=== PATIENT | female | born 1995 | race African-American/Black ===

== ENCOUNTER 2017-03-20 15:54 | Inpatient (IN) | payer OTHER ==
[2017-03-20] MEDS ORDERED: NS 2,000 ML IV ONE (16:06)
[2017-03-20] MEDS ORDERED: ONDANSETRON 4 MG/2 ML VIAL IVP ONE ×2 (16:07→19:00)
--- NOTE | 2017-03-20 16:09 | EDPHY ---
H & P Stated Complaint: lightheaded, n/v for past 3 days. - Personal History LMP (Females 10-55): IUD In Place Current Tetanus/Diphtheria Vaccine: Yes - Medical/Surgical History Hx Asthma: No Hx Chronic Respiratory Disease: No Hx Diabetes: No Hx Cardiac Disease: No Hx Renal Disease: No Hx Cirrhosis: No Hx Alcoholism: No Hx HIV/AIDS: No Hx Splenectomy or Spleen Trauma: No Other PMH: PMH:none. PSH:none - Social History Smoking Status: Never smoked Time Seen by Provider: 03/20/17 16:02 HPI/ROS: CHIEF COMPLAINT: Nausea vomiting diarrhea x3 days HISTORY OF PRESENT ILLNESS: 21-year-old female generally healthy, remote history of appendectomy, complaining of nausea, vomiting, diarrhea for 3 days. No abdominal pain. Feels that she is dehydrated. Decreased urine output. No back or flank pain. No headache. No fever or chills. No flu-like symptoms. No known sick contacts. PRIMARY CARE PROVIDER: [facility] REVIEW OF SYSTEMS: A ten point review of systems was performed and is negative with the exception of the items mentioned in the HPI PAST MEDICAL & SURGICAL HISTORY: Appendectomy. Endometriosis. SOCIAL HISTORY: Student nonsmoker PHYSICAL EXAM (Prior to examination, patient consented to physical exam, hands were washed and my usual and customary physical exam procedures followed) 1) GENERAL: Well-developed, well-nourished, alert and oriented. Appears nontoxic 2) HEAD: Normocephalic, atraumatic 3) HEENT: Pupils equal, round, reactive to light bilaterally. Sclera anicteric. [Nasopharynx, oropharynx, clear, no lesions. Dry mucous membranes 4) NECK: Full range of motion, no meningeal signs. 5) LUNGS: Clear auscultation bilaterally, no wheezes, no rhonchi, no retractions. 6) HEART: Regular rate and rhythm, no murmur, no heave, no gallop. 7) ABDOMEN: No guarding, no rebound, no focal tenderness, negative McBurney's, negative Rueda's, negative Rovsing's, negative peritoneal sign, I am unable to elicit any abdominal pain on exam 8) MUSCULOSKELETAL: Moving all extremities, no focal areas of tenderness, no obvious trauma. No peripheral edema or discoloration. 9) BACK: No CVA tenderness, no midline vertebral tenderness, no fluctuance, no step-off, no obvious trauma, no visual or palpable abnormality. 10) SKIN: No rash, no petechiae. 11) Psychiatric: Patient is oriented X 3, there is no agitation. DIFFERENTIAL DIAGNOSIS: My differential diagnosis includes, but is not limited to, acute appendicitis, acute cholecystitis, bowel obstruction, acute pancreatitis, ovarian torsion, ectopic , gastritis and urinary tract infection. The patient understands that this diagnosis is provisional and can never be 100% accurate. This is a partial list of diagnoses considered. These considerations are based on history, physical exam, past history and reassessment. (Mariah Rose) Constitutional: Initial Vital Signs Temperature (C) 36.4 C 03/20/17 16:03 Heart Rate 105 H 03/20/17 16:03 Respiratory Rate 18 03/20/17 16:03 Blood Pressure 138/80 H 03/20/17 16:03 O2 Sat (%) 96 03/20/17 16:03 O2 Delivery Mode Room Air Allergies/Adverse Reactions: No Known Allergies Allergy (Unverified 06/23/14 11:44) Home Medications: Medication Instructions Recorded Adderall 10 MG (*) 03/20/17 Claritin 03/20/17 Ondansetron Odt [Zofran Odt] 4 mg PO Q4PRN PRN #10 tab 03/20/17 Medical Decision Making Procedures: Patient is given Imodium 4 mg p.o. Stool is sent for stool studies (Frederick Thomas) ED Course/Re-evaluation: 4:08 p.m.: Will obtain diagnostic studies, administer IV hydration and IV antiemetic and re-evaluate 5:00 p.m.: Care turned over to Dr. Frederick Thomas who also evaluated and examined patient. (Mariah Rose) I also saw the patient in the emergency department at 4:10 p.m.. I obtained a history of history of sensitive stomach and appendectomy. 2 days of vomiting and diarrhea. Occasional crampy abdominal pain but no localizing abdominal pain. Can't keep fluids down. No recent travel or known bad food exposure. Abdominal exam shows no focal areas of tenderness. Mucous membranes are dry. Plan IV fluids until urination. Zofran for nausea 8:10 p.m.. Patient has had 3 L of saline. She has had 4 episodes of diarrhea. She still has no urge to urinate. Her abdomen is reexamined and shows no focal areas of tenderness. I consulted and discussed case with Dr. Barton, hospitalist who agrees to the admission (Frederick Thomas) Differential Diagnosis: I suspect that this is noro virus. This could be bacterial gastroenteritis. Patient is clinically dehydrated and not improving. Minimal urination. No evidence for acute abdomen. I have also considered electrolyte abnormalities ( Frederick Thomas) - Data Points Laboratory Results: Laboratory Results 03/20/17 16:12 03/20/17 16:12 03/20/17 03/20/17 03/20/17 17:38 16:12 16:12 WBC RBC Hgb Hct MCV MCH MCHC RDW Plt Count MPV Neut % (Auto) Lymph % (Auto) [place] % (Auto) Eos % (Auto) Baso % (Auto) Nucleat RBC Rel Count Absolute Neuts (auto) Absolute Lymphs (auto) Absolute Monos (auto) Absolute Eos (auto) Absolute Basos (auto) Absolute Nucleated RBC Immature Gran % Immature Gran # Sodium 143 mEq/L mEq/L (135-145) Potassium 4.1 mEq/L mEq/L (3.5-5.2) Chloride 107 mEq/L mEq/L (97-110) Carbon Dioxide 15 mEq/l L mEq/l (22-31) Anion Gap 21 mEq/L H mEq/L (8-16) BUN 13 mg/dL mg/dL (7-23) Creatinine 1.0 mg/dL mg/dL (0.6-1.0) Estimated GFR > 60 Glucose 95 mg/dL mg/dL (70-100) Calcium 10.1 mg/dL mg/dL (8.5-10.4) Total Bilirubin 0.7 mg/dL mg/dL (0.1-1.4) Conjugated Bilirubin 0.5 mg/dL mg/dL (0.0-0.5) Unconjugated Bilirubin 0.2 mg/dL mg/dL (0.0-1.1) AST 35 IU/L IU/L (14-46) ALT 32 IU/L IU/L (9-52) Alkaline Phosphatase 77 IU/L IU/L (38-126) Total Protein 8.5 g/dL H g/dL (6.3-8.2) Albumin 4.9 g/dL g/dL (3.5-5.0) Lipase 106 IU/L IU/L (23-300) Beta HCG, Qual NEGATIVE Urine Color LT. YELLOW Urine Appearance CLEAR Urine pH 6.0 (5.0-7.5) Ur Specific [place] > 1.030 H (1.002-1.030) Urine Protein 1+ H (NEGATIVE) Urine Ketones 1+ H (NEGATIVE) Urine Blood 1+ H (NEGATIVE) Urine Nitrate NEGATIVE (NEGATIVE) Urine Bilirubin NEGATIVE (NEGATIVE) Urine Urobilinogen 0.2 EU EU (0.2-1.0) Ur Leukocyte Esterase NEGATIVE (NEGATIVE) Urine RBC 3-5 /hpf H /hpf (0-3) Urine WBC NONE SEEN /hpf /hpf (0-3) Ur Epithelial Cells 2+ /lpf H /lpf (NONE-1+) Urine Bacteria 1+ /hpf H /hpf (NONE SEEN) Urine Mucus 1+ /lpf /lpf (NONE-1+) Urine Glucose NEGATIVE (NEGATIVE) 03/20/17 16:12 WBC 8.36 10^3/uL 10^3/uL (3.80-9.50) RBC 5.70 10^6/uL H 10^6/uL (4.18-5.33) Hgb 15.6 g/dL g/dL (12.6-16.3) Hct 47.3 % H % (38.0-47.0) MCV 83.0 fL fL (81.5-99.8) MCH 27.4 pg L pg (27.9-34.1) MCHC 33.0 g/dL g/dL (32.4-36.7) RDW 13.3 % % (11.5-15.2) Plt Count 243 10^3/uL 10^3/uL (150-400) MPV 10.0 fL fL (8.7-11.7) Neut % (Auto) 63.2 % % (39.3-74.2) Lymph % (Auto) 23.8 % % (15.0-45.0) [place] % (Auto) 11.8 % % (4.5-13.0) Eos % (Auto) 0.6 % % (0.6-7.6) Baso % (Auto) 0.1 % L % (0.3-1.7) Nucleat RBC Rel Count 0.0 % % (0.0-0.2) Absolute Neuts (auto) 5.28 10^3/uL 10^3/uL (1.70-6.50) Absolute Lymphs (auto) 1.99 10^3/uL 10^3/uL (1.00-3.00) Absolute Monos (auto) 0.99 10^3/uL H 10^3/uL (0.30-0.80) Absolute Eos (auto) 0.05 10^3/uL 10^3/uL (0.03-0.40) Absolute Basos (auto) 0.01 10^3/uL L 10^3/uL (0.02-0.10) Absolute Nucleated RBC 0.00 10^3/uL 10^3/uL (0-0.01) Immature Gran % 0.5 % % (0.0-1.1) Immature Gran # 0.04 10^3/uL 10^3/uL (0.00-0.10) Sodium Potassium Chloride Carbon Dioxide Anion Gap BUN Creatinine Estimated GFR Glucose Calcium Total Bilirubin Conjugated Bilirubin Unconjugated Bilirubin AST ALT Alkaline Phosphatase Total Protein Albumin Lipase Beta HCG, Qual Urine Color Urine Appearance Urine pH Ur Specific [place] Urine Protein Urine Ketones Urine Blood Urine Nitrate Urine Bilirubin Urine Urobilinogen Ur Leukocyte Esterase Urine RBC Urine WBC Ur Epithelial Cells Urine Bacteria Urine Mucus Urine Glucose Medications Given: Discontinued Medications Sodium Chloride (Ns) 2,000 mls @ 0 mls/hr IV ONCE ONE PRN Reason: Wide Open Stop: 03/20/17 16:07 Last Admin: 03/20/17 16:19 Dose: 2,000 mls Sodium Chloride (Ns) 1,000 mls @ 0 mls/hr IV EDNOW ONE; Wide Open PRN Reason: Protocol Stop: 03/20/17 18:31 Last Admin: 03/20/17 18:36 Dose: 1,000 mls Loperamide HCl (Imodium) 4 mg PO EDNOW ONE Stop: 03/20/17 18:31 Last Admin: 03/20/17 18:35 Dose: 4 mg Ondansetron HCl (Zofran) 4 mg IVP EDNOW ONE Stop: 03/20/17 16:08 Last Admin: 03/20/17 16:19 Dose: 4 mg Ondansetron HCl (Zofran) 4 mg IVP EDNOW ONE Stop: 03/20/17 19:01 Last Admin: 03/20/17 19:02 Dose: 4 mg Departure - Departure Disposition: [facility] Inpatient Acute Clinical Impression: Volume depletion, Nausea vomiting and diarrhea Condition: Good Instructions: Acute Nausea and Vomiting (ED) Additional Instructions: Seek immediate medical attention if you develop new or worsening symptoms, if you develop fevers, chills, inability to tolerate oral intake or any other symptoms that concerns you. Referrals: [facility],. [Clinic] - 1-2 days without fail Prescriptions: Ondansetron Odt [Zofran Odt] 4 mg PO Q4PRN PRN #10 tab PRN Reason: Nausea
[2017-03-20 16:22] LABS: PLATELET COUNT 243 10^3/uL (150-400)
[2017-03-20] MEDS ORDERED: NS 1,000 ML IV ONE (18:30)
[2017-03-20] MEDS ORDERED: LOPERAMIDE HCL 2 MG CAP PO ONE (18:30)
[2017-03-20] MEDS ORDERED: ONDANSETRON 4 MG/2 ML VIAL ONE (18:59)
[2017-03-20] MEDS ORDERED: clonazePAM 0.5 MG TAB ONE (21:12)
[2017-03-20] MEDS ORDERED: clonazePAM 0.5 MG TAB PO SCH (21:15)
[2017-03-20] MEDS ORDERED: ONDANSETRON DISINTEGRATING 4 MG TAB PO PRN (21:34)
--- NOTE | 2017-03-20 21:43 | PDGENHP ---
History and Physical - Chief Complaint diarrhea - History of Present Illness 21-year-old female generally healthy, remote history of appendectomy, complaining of nausea, vomiting, diarrhea for 3 days. No abdominal pain. . Decreased urine output. No back or flank pain. No headache. No fever or chills. No flu-like symptoms. No known sick contacts. Ate a hot dog the day before symptoms started. no recent abx use. no new meds. Was given 3 L of IVF in the E.D, but still with little urination and concentrated urine. cont to have emesis and diarrhea. Non bloody. Denies fevers. PAST MEDICAL & SURGICAL HISTORY: Appendectomy. Endometriosis. SOCIAL HISTORY: Student nonsmoker, social ETOH, daily marijuana use, no illicits FmHx: [place] History Information - Allergies/Home Medication List Allergies/Adverse Reactions: No Known Allergies Allergy (Unverified 06/23/14 11:44) Home Medications: Amphet Asp and D/Amphet [Adderall 10 MG (*)] 10 mg PO DAILY@15 03/20/17 [Last Taken 03/06/17] Citalopram [CeleXA] 20 mg PO DAILY 03/20/17 [Last Taken 03/17/17] Dextroamphetamine/Amphetamine [Adderall Xr 30 mg Capsule] 30 mg PO DAILY [Last Taken 03/06/17] Loratadine [Claritin 10 mg] 10 mg PO DAILY PRN 03/20/17 [Last Taken Unknown] clonazePAM [CLONAZEPAM] 0.5 mg PO DAILY PRN 03/20/17 [Last Taken Unknown] I have personally reviewed and updated: medical history, social history - Social History Smoking Status: Never smoked Review of Systems Review of Systems: ROS: 10pt was reviewed & negative except for what was stated in HPI & below Physical Exam Physical Exam: Temp Pulse Resp BP Pulse Ox 36.9 C 90 16 113/73 96 03/20/17 19:53 03/20/17 21:19 03/20/17 21:19 03/20/17 21:19 03/20/17 21:19 Constitutional: no apparent distress Eyes: PERRL Ears, Nose, Mouth, Throat: dry mucous membranes Cardiovascular: regular rate and rhythym, No edema Respiratory: no respiratory distress, no rales or rhonchi, clear to auscultation Gastrointestinal: normoactive bowel sounds, soft, non-tender abdomen, No ascites , No mazariegos's sign, No rebound, No distension Genitourinary: no bladder fullness Skin: warm Musculoskeletal: full muscle strength Neurologic: AAOx3 Psychiatric: interacting appropriately, not anxious, not encephalopathic Lymph, Heme, Immunologic: No petechiae Lab Data & Imaging Review 03/20/17 16:12 03/20/17 16:12 WBC 8.36 10^3/uL (3.80-9.50) 03/20/17 16:12 RBC 5.70 10^6/uL (4.18-5.33) H 03/20/17 16:12 Hgb 15.6 g/dL (12.6-16.3) 03/20/17 16:12 Hct 47.3 % (38.0-47.0) H 03/20/17 16:12 MCV 83.0 fL (81.5-99.8) 03/20/17 16:12 MCH 27.4 pg (27.9-34.1) L 03/20/17 16:12 MCHC 33.0 g/dL (32.4-36.7) 03/20/17 16:12 RDW 13.3 % (11.5-15.2) 03/20/17 16:12 Plt Count 243 10^3/uL (150-400) 03/20/17 16:12 MPV 10.0 fL (8.7-11.7) 03/20/17 16:12 Neut % (Auto) 63.2 % (39.3-74.2) 03/20/17 16:12 Lymph % (Auto) 23.8 % (15.0-45.0) 03/20/17 16:12 [place] % (Auto) 11.8 % (4.5-13.0) 03/20/17 16:12 Eos % (Auto) 0.6 % (0.6-7.6) 03/20/17 16:12 Baso % (Auto) 0.1 % (0.3-1.7) L 03/20/17 16:12 Nucleat RBC Rel Count 0.0 % (0.0-0.2) 03/20/17 16:12 Absolute Neuts (auto) 5.28 10^3/uL (1.70-6.50) 03/20/17 16:12 Absolute Lymphs (auto) 1.99 10^3/uL (1.00-3.00) 03/20/17 16:12 Absolute Monos (auto) 0.99 10^3/uL (0.30-0.80) H 03/20/17 16:12 Absolute Eos (auto) 0.05 10^3/uL (0.03-0.40) 03/20/17 16:12 Absolute Basos (auto) 0.01 10^3/uL (0.02-0.10) L 03/20/17 16:12 Absolute Nucleated RBC 0.00 10^3/uL (0-0.01) 03/20/17 16:12 Immature Gran % 0.5 % (0.0-1.1) 03/20/17 16:12 Immature Gran # 0.04 10^3/uL (0.00-0.10) 03/20/17 16:12 Sodium 143 mEq/L (135-145) 03/20/17 16:12 Potassium 4.1 mEq/L (3.5-5.2) 03/20/17 16:12 Chloride 107 mEq/L (97-110) 03/20/17 16:12 Carbon Dioxide 15 mEq/l (22-31) L 03/20/17 16:12 Anion Gap 21 mEq/L (8-16) H 03/20/17 16:12 BUN 13 mg/dL (7-23) 03/20/17 16:12 Creatinine 1.0 mg/dL (0.6-1.0) 03/20/17 16:12 Estimated GFR > 60 03/20/17 16:12 Glucose 95 mg/dL (70-100) 03/20/17 16:12 Calcium 10.1 mg/dL (8.5-10.4) 03/20/17 16:12 Total Bilirubin 0.7 mg/dL (0.1-1.4) 03/20/17 16:12 Conjugated Bilirubin 0.5 mg/dL (0.0-0.5) 03/20/17 16:12 Unconjugated Bilirubin 0.2 mg/dL (0.0-1.1) 03/20/17 16:12 AST 35 IU/L (14-46) 03/20/17 16:12 ALT 32 IU/L (9-52) 03/20/17 16:12 Alkaline Phosphatase 77 IU/L (38-126) 03/20/17 16:12 Total Protein 8.5 g/dL (6.3-8.2) H 03/20/17 16:12 Albumin 4.9 g/dL (3.5-5.0) 03/20/17 16:12 Lipase 106 IU/L (23-300) 03/20/17 16:12 Beta HCG, Qual NEGATIVE 03/20/17 16:12 Urine Color LT. YELLOW 03/20/17 17:38 Urine Appearance CLEAR 03/20/17 17:38 Urine pH 6.0 (5.0-7.5) 03/20/17 17:38 Ur Specific [place] > 1.030 (1.002-1.030) H 03/20/17 17:38 Urine Protein 1+ (NEGATIVE) H 03/20/17 17:38 Urine Ketones 1+ (NEGATIVE) H 03/20/17 17:38 Urine Blood 1+ (NEGATIVE) H 03/20/17 17:38 Urine Nitrate NEGATIVE (NEGATIVE) 03/20/17 17:38 Urine Bilirubin NEGATIVE (NEGATIVE) 03/20/17 17:38 Urine Urobilinogen 0.2 EU (0.2-1.0) 03/20/17 17:38 Ur Leukocyte Esterase NEGATIVE (NEGATIVE) 03/20/17 17:38 Urine RBC 3-5 /hpf (0-3) H 03/20/17 17:38 Urine WBC NONE SEEN /hpf (0-3) 03/20/17 17:38 Ur Epithelial Cells 2+ /lpf (NONE-1+) H 03/20/17 17:38 Urine Bacteria 1+ /hpf (NONE SEEN) H 03/20/17 17:38 Urine Mucus 1+ /lpf (NONE-1+) 03/20/17 17:38 Urine Glucose NEGATIVE (NEGATIVE) 03/20/17 17:38 Assessment & Plan Assessment: #Gastroenteritis, likely viral #Dehydration #Nausea and vomiting #Metabolic Acidosis Plan: -Admit observation -IVF -trial of protonix, will provide IV given emesis -trial of scheduled antiemetics -cont home meds -check magnesium -recheck labs in a.m. -SCD's
[2017-03-20] MEDS ORDERED: clonazePAM 0.5 MG TAB PO PRN (21:45)
[2017-03-20] MEDS: PANTOPRAZOLE SODIUM 40 MG VIAL IVP SCH (21:56)
[2017-03-20] MEDS: NS 1,000 ML IV SCH (21:57)
[2017-03-21 05:34] LABS: PLATELET COUNT 189 10^3/uL (150-400)
[2017-03-21] MEDS: ACETAMINOPHEN 325 MG TAB PO PRN ×3 (07:07→17:39)
[2017-03-21] MEDS ORDERED: CITALOPRAM 20 MG TAB PO SCH ×2 (09:00→21:00)
[2017-03-21] MEDS ORDERED: CETIRIZINE 10 MG TAB PO PRN (09:00)
--- NOTE | 2017-03-21 10:29 | ASMTCMCOM ---
CM Note CM Note Notes: Spoke w/RN, pt is a student at , anticipate will dc home independent when medically stable. CM available for any changes. DC Plan: Home Independent Date Signed: 03/21/2017 10:28 AM Electronically Signed By:Louisa Tran RN
[2017-03-21] MEDS: PANTOPRAZOLE SODIUM 40 MG VIAL IVP SCH (11:04)
[2017-03-21] MEDS: ONDANSETRON 4 MG/2 ML VIAL IVP PRN (11:04)
[2017-03-21] MEDS: NON-FORMULARY NEW DRUG (Dextroamphetamine/Amphetamine [Adderall Xr 30 Mg Capsule] 30 MG) PO SCH (11:05)
[2017-03-21] MEDS: ONDANSETRON DISINTEGRATING 4 MG TAB PO SCH ×3 (13:35→20:55)
[2017-03-21] MEDS ORDERED: ADDERALL 20 MG TAB PO SCH (15:00)
--- NOTE | 2017-03-21 16:15 | HOSPPROG ---
Hospitalist Progress Note Assessment/Plan: 21 yo female admitted with 3 days of N.v.diarrhea and dehydration. Found to have allen virus gastroenteritis. Have attempted fluid hydration, clears, and ADAT. She did not tolerate diet advance and had vomiting. Will continue IVF for 24 hours more due to inability to maintain fluid hydration, nausea, vomiting and diarrhea. Patient new to me today. Records reviewed. Discussed with family -acute allen virus gastroenteritis -marijuana abuse, daily, possible addiction time: 45 minutes. Discussed with family and patient. all questions answered. Subjective: c/o nausea, weakness, abdominal bloating. Denies fever Objective: Vital Signs Temp Pulse Resp BP Pulse Ox 36.6 C 74 14 111/74 97 03/21/17 11:17 03/21/17 11:17 03/21/17 11:17 03/21/17 11:17 03/21/17 11:17 Laboratory Results 03/21/17 04:23 03/21/17 04:23 03/20/17 03/21/17 03/22/17 05:59 05:59 05:59 Intake Total 3000 Balance 3000 - Time Spent With Patient Time Spent with Patient: greater than 35 minutes Time Spent with Patient: Greater than 35 minutes spent on this patients care, greater than 50% of time spent counseling, educating, and coordinating care regarding the above mentioned plan. - Pending Discharge Pending Discharge Within 24 Hours: Yes Pending Discharge Date: 03/22/17 Pending Discharge Time: 11:00 - Physical Exam Constitutional: no apparent distress Eyes: PERRL, anicteric sclera Ears, Nose, Mouth, Throat: moist mucous membranes, hearing normal Cardiovascular: regular rate and rhythym, no murmur, rub, or gallop, systolic murmur Respiratory: no respiratory distress, no rales or rhonchi, clear to auscultation Gastrointestinal: normoactive bowel sounds, no palpable masses, tenderness, distension, other (oveall abdominal discomfort to palpation causing nausea, no rebound) Genitourinary: no bladder fullness Skin: warm Musculoskeletal: full muscle strength Neurologic: AAOx3, CN II-XII Intact Psychiatric: interacting appropriately ICD10 Worksheet Patient Problems: Problems Problem Status Onset Volume depletion Acute Nausea vomiting and diarrhea Acute
--- NOTE | 2017-03-21 16:43 | PDMN ---
Medical Necessity Medical necessity: C/M review: [place] [facility] [place]ro[place]itis: Acute and persistent astrovirus gastroenteritis, nausea, vomiting, dehydration, poor oral intake, requiring ongoing IV NS 175 ml/hr, IV pantoprazole QD, IV Zofran, comorbid three days of nausea, vomiting, diarrhea prior to this admission, daily marijuana abuse, possible addiction. MD anticipates > 2 MN LOS for ongoing med nec for eval and TX of above.
[2017-03-22] MEDS: NS 1,000 ML IV SCH (01:38)
[2017-03-22] MEDS: ONDANSETRON DISINTEGRATING 4 MG TAB PO SCH ×3 (01:38→11:23)
[2017-03-22] MEDS: ONDANSETRON 4 MG/2 ML VIAL IVP PRN (04:57)
[2017-03-22 07:19] LABS: PLATELET COUNT 227 10^3/uL (150-400)
[2017-03-22 07:36] VITALS: O2SAT 95
[2017-03-22] MEDS: PANTOPRAZOLE SODIUM 40 MG VIAL IVP SCH (08:03)
[2017-03-22] MEDS: NON-FORMULARY NEW DRUG (Dextroamphetamine/Amphetamine [Adderall Xr 30 Mg Capsule] 30 MG) PO SCH (08:08)
[2017-03-22 11:22] VITALS: BP 96/73; PULSE 68; RESP 14; TEMP 98.2
--- NOTE | 2017-03-22 11:43 | ASMTCMCOM ---
CM Note CM Note Notes: Patient requesting assistance with obtaining dc meds as [facility] in [place] is closed. Out of pocket expense is high patient referred to [facility] in [place] for prescription needs. Date Signed: 03/22/2017 11:42 AM Electronically Signed By:Malorie Call RN
--- NOTE | 2017-03-22 17:22 | GDS ---
[f rep st] DISCHARGE SUMMARY DIAGNOSES: New and acute diagnoses: 1. Acute Astrovirus gastroenteritis. 2. Marijuana abuse on a daily basis. 3. Gastroesophageal reflux disease by history. 4. Attention deficit disorder on stimulant medication. CONSULTATION: None. PROCEDURES: None. HOSPITAL COURSE: A 21-year-old female, who is generally healthy, presenting with a complaint of naus ea, vomiting, diarrhea for 3 days. GI panel showed findings of an Astrovirus which is consistent wit h a mild degree cause of viral gastroenteritis. She was placed on IV fluids but continued to have na usea and vomiting despite 24 hours of care. Thus, her care was extended and, in 48 hours, it had ful ly resolved. She was able to eat a light liquid meal. She reports a history of reflux disease which has never been evaluated. We had a discussion about her use of marijuana on a daily basis as a cause of recurrent nausea and vo miting. She is going to consider diminishing or stopping her use of marijuana. DISCHARGE MEDICATIONS: New medications are Zofran 4 mg q.4 hours p.r.n. nausea, Tylenol to be used f or pain, and Protonix 40 mg p.o. b.i.d. for reflux. Continued medications will be Claritin 10 mg michelle ly, Adderall-XL 30 mg capsule p.o. daily, clonazepam 0.5 mg daily, Adderall immediate release 10 mg t ablet to be used on a daily basis at 1500 hours, and Celexa 20 mg daily. PLAN: Patient is a [facility] patient. Her followup will be through [facility], and I have encouraged [facility] to follow up with [facility] in Gastroenterology for evaluation of her reflux. Time this discharge required, 45 minutes, greater than 50% to cruise counselor, coordinate care, and explain f indings to the patient. /[id number]/MODL
== END 2017-03-22 11:55 | disposition home or self-care (01) | DRG 392 ==
LOC: INTOOBSV 20:34 → F3E 21:30 → OBSVTOIN 03-21 16:31
PROVIDERS: ADMIT Family Medicine; ATTEND Family Medicine
DX: A08.32 Astrovirus enteritis (principal); E86.0 Dehydration; F12.10 Cannabis abuse, uncomplicated; K21.9 Gastro-esophageal reflux disease without esophagitis; F98.8 Other specified behavioral and emotional disorders with onset usually occurring in childhood and adolescence
CPT/HCPCS: 96374; G0378; J2405